=== PATIENT | male | born 1980 | race Caucasian/White ===

== ENCOUNTER 2020-02-23 16:16 | Emergency (ER) | payer OTHER, SELFPAY ==
[2020-02-23 16:23] VITALS: BP 146/79; PULSE 79; RESP 22; TEMP 36.6; O2SAT 99
--- NOTE | 2020-02-23 18:04 | ED.WOUNDLAC ---
HPI - Wound/Laceration General Chief Complaint: Wound/Laceration Stated Complaint: wound to neck from work injury Time Seen by Provider: 02/23/20 18:01 Source: patient Mode of arrival: Ambulatory Limitations: no limitations History of Present Illness HPI narrative: 31-year-old male here for evaluation of an injury to the left side of his neck. Patient states that he was wearing a ful face mask. Was using a valve grinder when the valve grinder kicked back up and hit him on the left side of his neck. He also sustained a small abrasion to the right side of the collar bone. He has no problems breathing. He is having problems swelling. Has a muffled voice. Last tetanus shot was greater than 10 years ago. Event occurred several hours prior to arrival here in the ER. Related Data Allergies Allergy/AdvReac Type Severity Reaction Status Date / Time Iodinated Contrast Media Allergy Verified 02/23/20 18:44 Review of Systems Constitutional Constitutional: Denies headache(s) ENT Ears, Nose, Mouth, and Throat: Reports dysphagia, Denies facial pain, Denies headache(s), Denies nasal obstruction, Denies nasal trauma, Reports neck pain and Reports sore throat Comments: Cut to neck Cardiovascular Cardiovascular: Denies chest pain and Denies dyspnea Respiratory Respiratory: Denies cough and Denies dyspnea Gastrointestinal Gastrointestinal: Denies abdominal pain, Reports dysphagia, Denies nausea and Denies vomiting Genitourinary Genitourinary: Denies dysuria Genitourinary: Denies dysuria Musculoskeletal Musculoskeletal: Reports neck pain Integumentary/Breasts Comments: Cut to left side of neck Neurologic Neurologic: Denies behavioral changes and Denies headache(s) Psychiatric Psychiatric: Denies behavioral changes Hematologic/Lymphatic Hematologic/Lymphatic: Denies easy bleeding and Denies easy bruising Allergic/Immunologic Allergic/Immunologic: Denies urticaria Patient History Medical History Healthy adult (Acute) Social History (Updated 02/23/20 @ 20:08 by Milad Chamorro DO) lives independently: Yes Exam Initial Vital Signs Initial Vital Signs: Vital Signs Temperature 97.9 F 02/23/20 16:23 Pulse Rate 79 02/23/20 16:23 Respiratory Rate 22 02/23/20 16:23 Blood Pressure 146/79 H 02/23/20 16:23 Pulse Oximetry 99 02/23/20 16:23 Const General: cooperative, healthy appearing, comfortable and well developed Limitations: mental status not altered HENMT Head: normal to inspection and normocephalic Nose: external nose normal Mouth: oral mucosae normal Teeth and gingiva: dentition normal Eyes General: appearance normal, both eyes and all related structures Neck Neck: No tracheal deviation Lymphatic: No lymphadenopathy Other: Laceration to left side of neck Chest Other: Superficial abrasion right upper chest Resp Effort & Inspection: normal respiratory effort Auscultation: clear to auscultation bilaterally Cardio Rate: regular rate Rhythm: regular rhythm GI Inspection: non-distended Skin Other: Superficial abrasions size of a quarter right upper chest over the midclavicular portion. Patient also has a 3 cm laceration in zone 1 left side of his neck just lateral to midline. No active bleeding. Does not appear to violate the platysma. Has the laceration was moved over the midline it does appear to be a small injury into the platysma muscle. Neuro General: patient alert and patient awake Cognition: normal cognition Speech: speech normal Extrem General: normal to inspection and capillary refill normal Psych Appearance: grossly normal and well kempt Scores GCS Jaime coma scale eye opening: Spontaneous Jaime coma scale verbal response: Orientated Jaime coma scale motor response: Obey commands Jaime coma scale total score: 15 Course Orders Ordered: ED Orders 02/23/20 18:04 CT angio neck Stat 02/23/20 18:25 Complete Blood Count AUTO DIFF Stat Comprehensive Metabolic Panel Stat 02/23/20 20:07 COVID19 -ED/INPAT/OR/L&D Stat Cefazolin Sodium/Dextrose (Ancef) 2 gm in 100 mls @ 200 mls/hr IV NOW ONE Stop: 02/23/20 20:14 Discontinued Medications Diphenhydramine HCl (Benadryl) 50 mg IV NOW ONE Stop: 02/23/20 18:48 Last Admin: 02/23/20 18:50 Dose: 50 mg Documented by: ADDIS Diphtheria/Tetanus/Acell Pertussis (Adacel) 0.5 ml IM .ONCE ONE Stop: 02/23/20 18:28 Last Admin: 02/23/20 19:15 Dose: 0.5 ml Documented by: ADDIS Sodium Chloride (Normal Saline 0.9%) 1,000 mls @ 1,000 mls/hr IV BOLUS ONE Stop: 02/23/20 19:03 Last Admin: 02/23/20 18:51 Dose: 1,000 mls/hr Documented by: ADDIS Famotidine (Pepcid) 20 mg in 50 mls @ 200 mls/hr IV NOW ONE Stop: 02/23/20 19:02 Last Infusion: 02/23/20 19:12 Dose: 0 mls/hr Documented by: Admin: 02/23/20 18:50 Dose: 200 mls/hr Documented by: ADDIS Methylprednisolone (Solu-Medrol 125 Mg Vial) 125 mg IV NOW ONE Stop: 02/23/20 18:48 Last Admin: 02/23/20 18:50 Dose: 125 mg Documented by: ADDIS Vital Signs Vital signs: Vital Signs - 8 hr 02/23/20 16:23 Temperature 97.9 F Pulse Rate 79 Respiratory Rate 22 Blood Pressure 146/79 H Pulse Oximetry 99 MDM - Wound/Laceration Lab Data Attestation: I reviewed the patient's lab results. Result diagrams: 02/23/20 18:25 02/23/20 18:25 Labs: Lab Results 02/23/20 02/23/20 Range/Units 18:25 18:25 WBC 4.4 L (4.5-11.0) X10^3/uL RBC 4.10 L (4.5-5.9) X10^6/uL Hgb 13.3 L (13.5-17.5) g/dL Hct 38.9 L (41-53) % MCV 94.9 (80-100) fL MCH 32.5 (26-34) PG MCHC 34.2 (30-36) % RDW 13.3 (11.6-14.8) % Plt Count 192 (150-400) X10^3/uL Neut % (Auto) 53.0 (50-75) % Lymph % (Auto) 27.5 (25-40) % [place] % (Auto) 10.8 (3-14) % Eos % (Auto) 8.1 H (2-4) % Baso % (Auto) 0.6 (0-2) % Neut # (Auto) 2300 (9909-5828) /uL Lymph # (Auto) 1200 (4747-6282) /uL [place] # (Auto) 500 (0-900) /uL Eos # (Auto) 400 (0-450) /uL Baso # (Auto) 0 (0-100) /uL Sodium 140 (137-145) mmol/L Potassium 4.4 (3.4-5.1) mmol/L Chloride 106 (98-107) mmol/L Carbon Dioxide 27 (22-32) mmol/L BUN 15 (9-20) mg/dL Creatinine 0.87 (0.66-1.25) mg/dL Estimated GFR > 60.0 (>60) mL/min BUN/Creatinine Ratio 17.2 (6-22) Glucose 88 (70-100) mg/dL Calcium 8.8 (8.4-10.2) mg/dL Total Bilirubin 0.6 (0.2-1.3) mg/dL AST 75 H (17-59) IU/L ALT 87 H (<50) IU/L Alkaline Phosphatase 42 (38-126) U/L Total Protein 7.4 (6.3-8.2) g/dL Albumin 4.3 (3.5-5.0) g/dL Globulin 3.1 (1.7-4.1) g/dL Albumin/Globulin Ratio 1.4 (1.0-2.8) Imaging Data CTA neck: Radiologist's Impression: [place] [address] CT Scan Report Signed Patient: Dmitry HardingMR#: [id number] : 1980Acct:[id number] Age/Sex: 39 / MDate of Service: 02/23/20 Loc: ED Accession Number: [id number] Procedure: CT angio neck Ordering Provider: Milad Chamorro D.O. PROCEDURE: CT ANGIO NECK INDICATIONS: Left-sided neck does violate platysmas TECHNIQUE: After the administration of intravenous contrast, 1.5 mm axial sections acquired from the aortic arch to the [place]. Maximum intensity projection (MIP) reformats were then performed. Patient demonstrated a coughing fit following the examination, possibly indicating iodinated contrast allergy. Clinical correlation recommended. COMPARISON: None. FINDINGS: Image quality: Excellent. Carotid system: The great vessels demonstrate a conventional anatomy as they arise from the aortic arch. The origins of the common carotid arteries appear patent. The common carotid arteries demonstrate normal calibers and courses. The bifurcation regions appear normal bilaterally. The internal carotid arteries demonstrate normal caliber and course. Posterior circulation: The origins of the vertebral arteries appear patent. The more superior portions of the vertebral arteries demonstrate normal course and caliber. They join to form a normal appearing basilar artery. Soft tissues: There is a mild degree of subcutaneous gas within the soft tissues of the left upper neck as well as the low anterior neck surrounding the lower cervical trachea as well as the larynx and left valentin pharyngeal airway. Thyroid gland is within normal limits. Bones: No suspicious bony lesions. Visualized cervical spine appears normally aligned. There is mild bilateral frontal sinus mucosal thickening. Severe mucosal thickening in the bilateral ethmoid air cells. Mild mucosal thickening in the bilateral sphenoids air cells. Moderate mucosal thickening in the bilateral maxillary sinuses. IMPRESSION: 1. No acute process involving the arterial tree of the head and neck. 2. Small amount of gas within the soft tissues of neck, in a pattern suggestive of airway injury. Any quantitative stenosis measurements were performed using the NASCET criteria. Dictated by: Chivo Gonzalez M.D. on 02/23/2020 at 18:49 Approved by: Chivo Gonzalez M.D. on 02/23/2020 at 18:55 MDM Narrative Medical decision making narrative: Patient has no airway issues. Has not hypotensive. No problems breathing. Does have discomfort with swallowing. Also has a hoarse voice. Initially patient was triaged as a ROCHELLE level 4. He was evaluated after he had been in the room for approximately 30-45 minutes. Continue to have no airway issues. Initially thought that it was going to be a superficial injury however when the incision was moved just past midline and he swallowed I was concerned there was potentially a bubble that developed. We were unable to reproduce this. CTA was obtained. Shows no vascular injury however is concerning for airway issue. Patient's tetanus is updated. He was given antibiotics. Discussed the case with Dr. Goodwin who is on-call for trauma at [facility] who accepts the patient. I then discussed the case with Dr. Singh with the emergency department. Will transfer the patient to the emergency department for further evaluation treatment. Discussed this with the patient. He expressed understanding and agreement. Discharge Plan Departure Patient Disposition: [facility] Clinical Impression: Laceration, Injury of trachea
[2020-02-23 18:34] LABS: Add Manual Diff / Slide Review NO; Basophils Absolute Auto 0 /uL (0-100); Basophils Percent Auto 0.6 % (0-2); Eosinophils Absolute Auto 400 /uL (0-450); Eosinophils Percent Auto 8.1 % (2-4); Hematocrit 38.9 % (41-53); Hemoglobin 13.3 g/dL (13.5-17.5); Lymphocytes Absolute Auto 1200 /uL (1100-4500); Lymphocytes Percent Auto 27.5 % (25-40); Mean Corpuscular HGB Conc 34.2 % (30-36); Mean Corpuscular Hemoglobin 32.5 PG (26-34); Mean Corpuscular Volume 94.9 fL (80-100); Monocytes Absolute Auto 500 /uL (0-900); Monocytes Percent Auto 10.8 % (3-14); Neutrophils Absolute Auto 2300 /uL (1500-7000); Platelet Count 192 X10^3/uL (150-400); Red Cell Distribution Width 13.3 % (11.6-14.8); White Blood Cell Count 4.4 X10^3/uL (4.5-11.0)
[2020-02-23] MEDS: diphenhydrAMINE 50 MG/ML VIAL IV (18:50)
[2020-02-23] MEDS: FAMOTIDINE 20 MG/50 ML PIGGYBACK 200 MG IV (18:50)
[2020-02-23] MEDS: methylPREDNISolone 125 MG/2 ML VIAL IV (18:50)
[2020-02-23 18:51] LABS: Alanine Aminotransferase 87 IU/L (<50); Albumin 4.3 g/dL (3.5-5.0); Albumin Globulin Ratio 1.4 (1.0-2.8); Alkaline Phosphatase 42 U/L (38-126); Aspartate Aminotransferase 75 IU/L (17-59); BUN Creatinine Ratio 17.2 (6-22); Bilirubin Total 0.6 mg/dL (0.2-1.3); Blood Urea Nitrogen 15 mg/dL (9-20); Calcium 8.8 mg/dL (8.4-10.2); Carbon Dioxide 27 mmol/L (22-32); Chloride 106 mmol/L (98-107); Estimated Glomerular Filt Rate > 60.0 mL/min (>60); Globulin 3.1 g/dL (1.7-4.1); Glucose 88 mg/dL (70-100); HEMOLYSIS 22 (0-50); Potassium 4.4 mmol/L (3.4-5.1); Sodium 140 mmol/L (137-145); Total Protein 7.4 g/dL (6.3-8.2)
[2020-02-23] MEDS: SODIUM CHLORIDE 0.9% 1,000 ML 1000 ML IV (18:51)
--- NOTE | 2020-02-23 18:52 | PC.NURSE ---
Pt arrived back from CT scan after receiving IV contrast. Debra ADJUSTO WRITER OPERATOR tech alerted RN that pt sounds more hoarse and has developed a cough, Lungs sounds with mild end exp wheeze, pt flushed and states he feels itchy. Per nursing protocol, anaphylaxis kit pulled and pt given pepcid, benadryl, and solumedrol per JUL. placed on cardiac monitoring. SPO2 97% and placed on 2L for supplementation for allergic reaction. NS bolus infusing. Dr Chamorro made aware and at bedside. awaiting additional orders.
[2020-02-23] MEDS: TET,DIPH,PERTUSS(ACELL),VAC/PF 0.5 ML SYRINGE IM (19:15)
[2020-02-23] MEDS: CEFAZOLIN 2 GM/100 ML FROZ.PIGGY IV (20:18)
[2020-02-23 20:19] VITALS: BP 157/81; PULSE 70; RESP 20; O2SAT 99
[2020-02-23 20:28] LABS: COVID19 -Nasal RAPID Negative (Negative)
--- NOTE | 2020-02-23 20:52 | PC.NURSE ---
Report given to Taylor @ [facility] & faxed report sheet.
== END 2020-02-23 20:33 | disposition short-term general hospital (02) ==
PROVIDERS: Emergency Provider Emergency Medicine
DX: S11.91XA Laceration without foreign body of unspecified part of neck, initial encounter (principal); W31.2XXA Contact with powered woodworking and forming machines, initial encounter; Y99.0 Civilian activity done for income or pay
CPT/HCPCS: 36415; 70498; 80053; 85025; 87635; 90471; 96361; 96365; 96375; 99285; 99291; 90715; J0690; J1200; J2930; Q9967